=== PATIENT | female | born 1950 | race Caucasian/White ===

== ENCOUNTER 2018-11-07 19:04 | Emergency (ER) | payer MEDICARE ==
--- NOTE | 2018-11-07 19:42 | Emergency Department Record ---
History of Present Illness - General Chief complaint: Female Urogenital Problem Stated complaint: UTI Time Seen by Provider: 11/07/18 19:34 Source: Patient, Family (Grandson) Mode of Arrival: Wheelchair Limitations: No limitations - History of Present Illness Initial comments: Pt to ED with grandson who is caregiver for concern of possible UTI. Recent discharge 3 days ago from [facility] after one week psych admission. Pt has been more confused over past two days simislar to prior UTIs. Pt seen by primary physician today for the same. No reported fever, chills, N/V/D. Ave is awaiting Medicare approval for half-way placement as arranged by [place]. Pt is not suicidal. She is able to answer questions in an appropriate manner. MD Complaint: Dysuria Onset/Timin -: Days(s) Patient : No Associated Symptoms: Fever/chills - Related Data Sexually active: No Home Medications Medication Instructions Recorded Confirmed Last Taken Aripiprazole [Abilify] 2 mg PO DAILY 11/07/18 11/07/18 Unknown Bupropion HCl [Bupropion HCl Sr] 150 mg PO DAILY 11/07/18 11/07/18 Unknown Clonazepam 1 tab PO TID 11/07/18 11/07/18 Unknown Hydrocodone/Acetaminophen [Lorcet] 1 tab PO Q6H 11/07/18 11/07/18 Unknown Ibuprofen [Motrin 600Mg] 600 mg PO Q8H 11/07/18 11/07/18 Unknown Sennosides/Docusate Sodium 2 each PO DAILY 11/07/18 11/07/18 Unknown [Senna-Docusate Sodium Tablet] Tizanidine HCl 1 tab PO TID 11/07/18 11/07/18 Unknown Trazodone HCl [Desyrel] 50 mg PO QHS 11/07/18 11/07/18 Unknown Venlafaxine HCl [Venlafaxine HCl 150 mg PO DAILY 11/07/18 11/07/18 Unknown ER] Allergies Allergy/AdvReac Type Severity Reaction Status Date / Time celecoxib [From Celebrex] Allergy HIVES Verified 02/19/15 23:40 Travel Screening - Travel/Exposure Within Last 30 Days Have you traveled within the last 30 days?: No - Travel Symptoms Symptom Screening: Fever (Subjective) Review of Systems Constitutional: Denies: Chills, Fever, Weakness Eyes: Denies: Eye discharge, Photophobia ENT: Denies: Congestion, Ear pain Respiratory: Denies: Cough, Hemoptysis Cardiovascular: Denies: Arrhythmia, Chest pain, Syncope Endocrine: Denies: Fatigue, Polydipsia Gastrointestinal: Denies: Abdominal pain Musculoskeletal: Denies: Back pain Skin: Denies: Bruising, Rash Neurological: Reports: Confusion. Denies: Headache, Weakness Psychiatric: Reports: Anxiety. Denies: Suicidal thoughts Past Medical History - SOCIAL HISTORY Smoking Status: Current every day smoker Alcohol Use: None Drug Use: None - RESPIRATORY Hx Respiratory Disorders: No - CARDIOVASCULAR Hx Cardio Disorders: Yes Hx Hypertension: Yes - NEURO Hx Neuro Disorders: Yes Hx CVA: Yes (x2. 3 adn 5 yrs ago.) Comment:: pos polio syndrome - GI Hx GI Disorders: No - Hx Genitourinary Disorders: No - ENDOCRINE Hx Endocrine Disorders: No - MUSCULOSKELETAL Hx Musculoskeletal Disorders: Yes Comment:: chronic pain to back and left leg - PSYCH Hx Psych Problems: No - HEMATOLOGY/ONCOLOGY Hx Hematology/Oncology Disorders: No Family Medical History Any Significant Family History?: No Physical Exam - General General Appearance: Alert, Cooperative, No acute distress (Pt aware of person, place, year, and situation. ) - Head Head exam: Atraumatic - Eye Eye exam: Normal appearance. negative: Nystagmus - ENT ENT exam: Mucous membranes moist, Normal external ear exam, Normal orophraynx Teeth exam: Other (full dentures) - Neck Neck exam: Normal inspection. negative: Tenderness - Respiratory Respiratory exam: Normal lung sounds bilaterally, Rhonchi. negative: Respiratory distress, Wheezes - Cardiovascular Cardiovascular Exam: Regular rate, Normal rhythm Peripheral Pulses: 2+: Radial (R), Radial (L) - GI/Abdominal GI/Abdominal exam: Soft, Normal bowel sounds. negative: Guarding, Tenderness - Rectal Rectal exam: Deferred - exam: Deferred - Extremities Extremities exam: Normal inspection. negative: Pedal edema - Back Back exam: Reports: Normal inspection - Neurological Neurological exam: Alert, Oriented X3, Other (hx polio and left LE weakness - not new. ) - Psychiatric Psychiatric exam: Normal affect, Normal mood - Skin Skin exam: Normal color. negative: Rash Course Vital Signs 11/07/18 19:16 Temperature 98.3 F Pulse Rate [ 89 Pulse Ox Probe] Respiratory 20 Rate Blood Pressure 151/79 [Left Arm] Pulse Ox 100 - Reevaluation(s) Reevaluation #1: 11/07/18 19:43 seen with Grandson. Concern for confusion and possible UTI. Reevaluation #2: 11/07/18 20:32 Pt with concern for UTI. No evidenc eo fnifection on cath specimen. Long talk with guardian/caregiver grandson Gurvinder. He will care for ehr at home and continue the process of placement in an ECF. He is working with [facility]. He is comfortable with plan for [employer]. Medical Decision Making - Lab Data Result diagrams: 11/07/18 19:57 11/07/18 19:57 Disposition Disposition: Discharge Clinical Impression: Confusion state Disposition: Home, Self-Care Condition: (2) Stable Instructions: Altered Mental Status (ED) Additional Instructions: Continue current medications. Stay with family at all times to supervise. Fall precautions at home. Continue your placement process. Return as needed to the ED. No evidence of UTI today. Forms: Patient Portal Access Time of Disposition: 20:30 Quality - Quality Measures Quality Measures: N/A - Blood Pressure Screening Does Patient Have Any of the Following: No, Active Dx of HTN Blood Pressure Classification: Hypertensive Reading Systolic Measurement: 151 Diastolic Measurement: 79 Screening for High Blood Pressure: Patient Exclusion, Hx of HTN [[id number]]
[2018-11-07 19:57] LABS: URINE APPEARANCE CLEAR; URINE BILIRUBIN NEGATIVE (NEGATIVE); URINE BLOOD MODERATE (NEGATIVE); URINE COLOR YELLOW; URINE GLUCOSE (UA) NEGATIVE (NEGATIVE); URINE KETONE TRACE (NEGATIVE); URINE LEUKOCYTE ESTERASE NEGATIVE (NEGATIVE); URINE NITRITE NEGATIVE (NEGATIVE); URINE PROTEIN NEGATIVE (NEGATIVE); URINE UROBILINOGEN 0.2 E.U./dL (0.20 - 1.00)
[2018-11-07 20:05] LABS: BASO % 0.9 % (0-6); EOS % 3.5 % (0-6); GRAN % 51.5 % (47-80); HEMATOCRIT 36.6 % (35.0-47.0); HEMOGLOBIN 11.5 gm/dl (11.6-16.0); LYMPH % 34.6 % (16-45); MEAN CELL VOLUME 96.6 fl (81-97); MEAN CORPUSCULAR HEMOGLOBIN 30.3 pg (27-33); MEAN CORPUSCULAR HGB CONC 31.4 g/dl (32-36); MEAN PLATELET VOLUME 12.3 fl (7.4-10.4); MONO % 9.5 % (0-9); PLATELET COUNT 183 K/uL (130-400); RED BLOOD COUNT 3.79 M/uL (3.80-5.40); RED CELL DISTRIBUTION WIDTH 14.8 % (11.5-14.5); WHITE BLOOD COUNT W/O DIFF 5.7 K/uL (4.2-12.2)
[2018-11-07 20:10] LABS: URINE EPITHELIAL CELLS 0 - 2 (FEW); URINE WBC 0 - 2 (0-2/hpf)
[2018-11-07 20:14] LABS: BILIRUBIN,TOTAL < 0.20 mg/dL (0.2-1.0); BLOOD UREA NITROGEN 26 mg/dL (8-23); EST GLOMERULAR FILTRATION RATE 58 mL/min
[2018-11-07 20:17] LABS: GLUCOSE,RANDOM 82 mg/dL (74-109)
[2018-11-07 20:20] LABS: ALB/GLOB RATIO 1.3 (1.1-1.8); ALKALINE PHOSPHATASE 66 U/L (35-104); ALT/SGPT 8 U/L (<33); AST/SGOT 12 U/L (10.0-35.0)
== END 2018-11-07 20:39 | disposition home or self-care (01) ==
LOC: ER 19:04
DX: R41.0 Disorientation, unspecified (principal); R30.0 Dysuria; I10 Essential (primary) hypertension; F17.210 Nicotine dependence, cigarettes, uncomplicated; Z86.73 Personal history of transient ischemic attack (TIA), and cerebral infarction without residual deficits
CPT/HCPCS: 71046; 80053; 81001; 85025; 99283; 99284